=== PATIENT | female | born 1980 | race American Indian/Alaskan Native ===

== ENCOUNTER 2016-12-09 12:29 | Emergency (ER) | payer MEDICAID ==
[2016-12-09 12:50] VITALS: BP 121/67
[2016-12-09] MEDS ORDERED: Lidocaine 1% 30 ML SDV INJECT ONE (13:05)
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
== END 2016-12-09 13:47 | disposition home or self-care (01) ==
LOC: DL.ED 12:29
DX: L02.31 Cutaneous abscess of buttock (principal); G43.909 Migraine, unspecified, not intractable, without status migrainosus; F41.9 Anxiety disorder, unspecified; D64.9 Anemia, unspecified; F17.210 Nicotine dependence, cigarettes, uncomplicated; Z98.890 Other specified postprocedural states; Z88.0 Allergy status to penicillin; Z88.5 Allergy status to narcotic agent; Z88.8 Allergy status to other drugs, medicaments and biological substances
CPT/HCPCS: 10060; 87070; 99282

== ENCOUNTER 2017-01-21 20:40 | Emergency (ER) | payer MEDICAID ==
[2017-01-21 22:19] VITALS: BP 112/75
[2017-01-22] MEDS ORDERED: Lidocaine 1% 30 ML SDV INJECT ONE (01:44)
--- NOTE | 2017-01-22 02:00 | EDM.PDOC ---
ED HPI Skin/Rash - General Chief Complaint: Skin Complaint Stated Complaint: ABSESS Time Seen by Provider: 01/22/17 01:40 Source: Reports: Patient History Limitations: Reports: No limitations - History of Present Illness INITIAL COMMENTS - FREE TEXT/NARRATIVE: This 36 yo female patient reports to the ED with an abscess on her left buttocks for the past 3 days. The patient reports she called the clinic today, but was advised to got to the ED to have the abscess incised and drained. The patient has had a history of numerous abscesses, but has not followed up with dermatology yet. The patient reports she has not followed up due to difficulties with transportation. Symptom Onset Date: 01/18/17 Timing: Reports: still present, gradual onset Location, Skin: Reports: lower extremity, left Quality: Reports: Ache, Dull Severity: moderate Known Identified Source: no Place of Occurrence: home Sick Contact: no Associated Symptoms: Reports: fever/chills Similar Symptoms Previously: yes Recent Medical Care: no Treatments ROUTE RETURNER: Reports: Acetaminophen - Related Data Allergies Allergy/AdvReac Type Severity Reaction Status Date / Time amoxicillin Allergy Shortness Verified 01/21/17 22:21 of Breath codeine Allergy Hives Verified 01/21/17 22:21 latex Allergy Swelling Verified 01/21/17 22:21 tramadol Allergy Hives Verified 01/21/17 22:21 vaginal yeast creams Allergy Burning Uncoded 01/21/17 22:21 Home Meds: Ambulatory Orders Medication Instructions Recorded Confirmed Albuterol [Proventil HFA] 6.7 gm INH Q6H PRN 12/29/16 01/21/17 FLUoxetine [PROzac] 40 mg PO DAILY 12/29/16 01/21/17 Meloxicam [Mobic] 15 mg PO DAILY PRN 12/29/16 01/21/17 oxyCODONE HCl/Acetaminophen 2 each PO DAILY PRN 12/29/16 01/21/17 [Percocet 5-325 mg Tablet] Past Medical History - Past Health History Medical/Surgical History: Denies Medical/Surgical History Cardiovascular History: Reports: Blood clots/VTE/DVT Respiratory History: Reports: Asthma Gastrointestinal History: Reports: Diverticulosis Genitourinary History: Reports: Renal calculus [employer] History: Reports: Fibroids Other OB/BYN History: fibroids removed Musculoskeletal History: Reports: Fracture Neurological History: Reports: Migraines Other Neuro History: post traumatic stress Psychiatric History: Reports: Anxiety, PTSD Endocrine/Metabolic History: Reports: Other (see below) Other Endocrine/Metabolic History: hypoglycemia Hematologic History: Reports: Anemia Dermatologic History: Reports: Cellulitis, Eczema Other Dermatologic History: Abcess to upper posterior thigh, groin 12/29/16 - Infectious Disease History Infectious Disease History: Reports: MRSA - Past Surgical History Cardiovascular Surgical History: Reports: None Respiratory Surgical History: Reports: None GI Surgical History: Reports: Appendectomy Female Surgical History: Reports: section Other Oncologic Surgeries/Procedures: cervical dysplasia Social & Family History - Family History Family Medical History: Noncontributory - Tobacco Use Smoking Status *Q: Current Every Day Smoker Years of Tobacco use: 20 Packs/Tins Daily: 0.5 Second Hand Smoke Exposure: Yes - Caffeine Use Caffeine Use: Reports: Coffee, Energy drinks - Recreational Drug Use Recreational Drug Use: No ED ROS GENERAL - Review of Systems Review Of Systems: ROS reveals no pertinent complaints other than HPI. ED EXAM, SKIN/RASH Exam: See Below Exam Limited By: No limitations General Appearance: alert, WD/WN, moderate distress Eye Exam: bilateral eye: normal inspection, PERRL Ears: normal external exam Nose: normal inspection, normal mucosa, no blood Throat/Mouth: Normal inspection, Normal lips Head: atraumatic, normocephalic Neck: normal inspection, full range of motion Respiratory/Chest: no respiratory distress, lungs clear, normal breath sounds Cardiovascular: normal peripheral pulses, regular rate, rhythm (Female) Exam: Deferred Rectal (Female) Exam: Deferred Extremities: normal range of motion, no pedal edema, normal capillary refill Neurological: alert, oriented, CN II-XII intact, normal cognition, normal gait, normal reflexes, no motor/sensory deficits Psychiatric: normal affect, normal mood Skin: Increased warmth (left upper buttocks) Location, Skin: lower extremity, left Characteristics: erythematous (abscess) Associated features: warmth, tenderness, swelling, induration, inflammation Lymphatic: no adenopathy ED SKIN PROCEDURES - I&D Site: left upper buttocks Skin prep: providone-iodine (betadine), isopropyl alcohol (alcohol) Local anesthesia: Lidocaine: 1% plain Local anesthetic volume: 5cc Area incised with: other Drainage: purulent, bloody, large amount Probed to break up loculations: Yes Packed with: 1/4 in. iodoform Sterile dressing: adhesive dressing, 4x4(s) Complications: No Course - Vital Signs Last Recorded V/S: Last Vital Signs Temp 36.8 C 01/21/17 22:18 Pulse 75 01/21/17 22:18 Resp 20 01/21/17 22:18 BP 112/75 01/21/17 22:18 Pulse Ox 100 01/21/17 22:18 - Orders/Labs/Meds Orders: Active Orders 24 hr Category Date Time Status Lidocaine 1% [Xylocaine-MPF 1%] Med 01/22/17 01:44 Once 30 ml INJECT ONETIME ONE Departure - Departure Time of Disposition: 02:08 Disposition: Home, Self-Care 01 Condition: fair Clinical Impression: Abscess of left buttock Instructions: Abscess, [id number] Forms: ED Department Discharge Care Plan Goals: The patient was advised of the examination results during the visit. The patient was given an oral dose of Bactrim DS while in the ED. The patient was given a script for Bactrim DS #28 to take 1 by mouth 2 times per day for 14 days. The patient should follow-up with her primary care facility on Tuesday to have the packing replaced. If the patient has any additional symptoms or concerns, the patient should follow-up with her primary care facility or return to the emergency department. - My Orders Last 24 Hours: My Active Orders 01/22/17 01:44 Lidocaine 1% [Xylocaine-MPF 1%] 30 ml INJECT ONETIME ONE - Assessment/Plan Last 24 Hours: My Active Orders 01/22/17 01:44 Lidocaine 1% [Xylocaine-MPF 1%] 30 ml INJECT ONETIME ONE
[2017-01-22] MEDS ORDERED: Sulfamethoxazole/Trimethoprim 800-160 MG Tab PO ONE (02:06)
== END 2017-01-22 02:23 | disposition home or self-care (01) ==
LOC: DL.ED 20:40
DX: L02.31 Cutaneous abscess of buttock (principal); J45.909 Unspecified asthma, uncomplicated; Z90.49 Acquired absence of other specified parts of digestive tract; F17.210 Nicotine dependence, cigarettes, uncomplicated; Z88.1 Allergy status to other antibiotic agents; Z88.5 Allergy status to narcotic agent; Z79.899 Other long term (current) drug therapy
CPT/HCPCS: 10061; 99282; A9270

== ENCOUNTER 2018-03-15 20:14 | Emergency (ER) | payer MEDICAID ==
[2018-03-15] MEDS ORDERED: LORazepam 2 MG/ML Syringe IVPUSH ONE (20:25)
[2018-03-15] MEDS ORDERED: LORazepam 2 MG/ML Syringe ONE (20:27)
[2018-03-15] MEDS ORDERED: Ondansetron 4 MG/2 ML SDV ONE (20:27)
[2018-03-15] MEDS ORDERED: Ondansetron 4 MG/2 ML SDV IV ONE (20:29)
[2018-03-15 21:07] LABS: SODIUM,NA 142 mmol/L (135-145)
[2018-03-15 21:08] LABS: CHLORIDE,CL 113 mmol/L (101-111)
[2018-03-15] MEDS ORDERED: Morphine 2 MG/ML Syringe IVPUSH ONE (21:14)
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
== END 2018-03-15 22:15 ==
LOC: DL.ED 20:14
DX: S06.0X0A Concussion without loss of consciousness, initial encounter (principal); S60.211A Contusion of right wrist, initial encounter; M62.838 Other muscle spasm; F10.129 Alcohol abuse with intoxication, unspecified; Z88.1 Allergy status to other antibiotic agents; Z88.5 Allergy status to narcotic agent; Z91.040 Latex allergy status; Z91.048 Other nonmedicinal substance allergy status; Y90.6 Blood alcohol level of 120-199 mg/100 ml; Z79.899 Other long term (current) drug therapy; Y04.1XXA Assault by human bite, initial encounter
CPT/HCPCS: 36415; 70450; 72125; 73610; 80053; 80305; 81001; 84703; 85025; 85610; 96374; 96375; 99285; G0480; J2060; J2270; J2405

== ENCOUNTER → 2020-08-04 | Emergency (ER) | payer MEDICAID, OTHER ==
[~2020-08-04] MED LIST: Lidocaine 1% 30 ML SDV INJECT ONE
--- NOTE | 2020-08-04 17:00 | EDM.PDOC ---
ED HPI GENERAL MEDICAL PROBLEM - General Chief Complaint: Skin Complaint Stated Complaint: ABCESS CYST ON LEFT ARM, LEFT HAND SWOLLEN Time Seen by Provider: 08/04/20 16:45 Source of Information: Reports: Patient History Limitations: Reports: No Limitations - History of Present Illness INITIAL COMMENTS - FREE TEXT/NARRATIVE: This 40 yo female patient reports to the ED with an abscess in her left axilla. The patient reports she started to notice the area getting swollen and red. The patient reports a history of MRSA and ran out of Bactrim 1 week ago. The patient reports she has been attempting to get the area to drain, but has been unsuccessful. Onset: Gradual Duration: Day(s):, Constant, Getting Worse Location: Reports: Chest Quality: Reports: Ache, Stabbing Severity: Moderate Improves with: Reports: None Worsens with: Reports: None Context: Reports: Other - Related Data Allergies Allergy/AdvReac Type Severity Reaction Status Date / Time amoxicillin Allergy Shortness Verified 08/25/18 18:52 of Breath codeine Allergy Hives Verified 08/25/18 18:52 latex Allergy Swelling Verified 08/25/18 18:52 tramadol Allergy Hives Verified 08/25/18 18:52 vaginal yeast creams Allergy Burning Uncoded 08/25/18 18:52 Home Meds: Home Meds Albuterol [Proventil HFA] 6.7 gm INH Q6H PRN 12/29/16 [History] FLUoxetine [PROzac] 40 mg PO DAILY 12/29/16 [History] Meloxicam [Mobic] 15 mg PO DAILY PRN 12/29/16 [History] oxyCODONE HCl/Acetaminophen [Percocet 5-325 mg Tablet] 2 each PO DAILY PRN 12/29/16 [History] Past Medical History - Past Health History Medical/Surgical History: Denies Medical/Surgical History Cardiovascular History: Reports: Blood Clots/VTE/DVT Respiratory History: Reports: Asthma Gastrointestinal History: Reports: Diverticulosis Genitourinary History: Reports: Renal Calculus 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 Other WELL TESTING OPERATOR History: fibroids removed Musculoskeletal History: Reports: Fracture Neurological History: Reports: Migraines Other Neuro History: post traumatic stress Psychiatric History: Reports: Anxiety, PTSD Endocrine/Metabolic History: Reports: Other (See Below) Other Endocrine/Metabolic History: hypoglycemia Hematologic History: Reports: Anemia Oncologic (Cancer) History: Reports: Cervix Dermatologic History: Reports: Cellulitis, Eczema Other Dermatologic History: Abcess to upper posterior thigh, groin 12/29/16 - Infectious Disease History Infectious Disease History: Reports: MRSA - Past Surgical History Female Surgical History: Reports: Section Oncologic Surgical History: Reports: Other (See Below) Social & Family History - Family History Family Medical History: No Pertinent Family History - Caffeine Use Caffeine Use: Reports: Coffee ED ROS GENERAL - Review of Systems Review Of Systems: Comprehensive ROS is negative, except as noted in HPI. ED EXAM, SKIN/RASH Exam: See Below Exam Limited By: No Limitations General Appearance: Alert, WD/WN, Moderate Distress Eye Exam: Bilateral Eye: EOMI, Normal Inspection, PERRL Ears: Normal External Exam, Normal Canal, Hearing Grossly Normal, Normal TMs Nose: Normal Inspection, Normal Mucosa, No Blood Throat/Mouth: Normal Inspection Head: Atraumatic, Normocephalic Neck: Normal Inspection, Supple, Non-Tender, Full Range of Motion Respiratory/Chest: No Respiratory Distress, Lungs Clear, Normal Breath Sounds, No Accessory Muscle Use, Chest Non-Tender Cardiovascular: Normal Peripheral Pulses, Regular Rate, Rhythm, No Edema, No Gallop, No JVD, No Murmur, No Rub GI/Abdominal: Normal Bowel Sounds, Soft, Non-Tender, No Organomegaly, No Distention, No Abnormal Bruit, No Mass (Female) Exam: Deferred Rectal (Female) Exam: Deferred Back Exam: Normal Inspection, Full Range of Motion, NT Extremities: Arm Pain (left axilla) Neurological: Alert, Oriented, CN II-XII Intact, Normal Cognition, Normal Gait, Normal Reflexes, No Motor/Sensory Deficits Psychiatric: Normal Affect, Normal Mood Skin: Erythema, Increased Warmth, Wound/Incision Location, Skin: Chest Characteristics: Confluent, Erythematous Associated features: Warmth, Tenderness, Swelling, Induration Lymphatic: No Adenopathy ED SKIN PROCEDURES - I&D Site: left axilla Skin Prep: Providone-Iodine (Betadine) Local Anesthesia: Lidocaine: 1% Plain Local Anesthetic Volume: 3cc Area Incised With: 11 Blade Drainage: Purulent, Bloody, Moderate Amount Probed to Break Up Loculations: Yes Packed With: None Sterile Dressing: Adhesive Dressing Complications: No Course - Vital Signs Last Recorded V/S: Last Vital Signs Temp 36.7 C 08/04/20 16:34 Pulse 92 08/04/20 16:34 Resp 18 08/04/20 16:34 BP 124/60 08/04/20 16:34 Pulse Ox 99 08/04/20 16:34 - Orders/Labs/Meds Orders: Active Orders 24 hr Category Date Time Status CULTURE BLOOD [BC] Stat Lab 08/04/20 16:41 Received CULTURE WOUND [RM] Stat Lab 08/04/20 16:20 Received Labs: Laboratory Tests 08/04/20 08/04/20 08/04/20 Range/Units 16:41 16:41 16:41 WBC 11.3 H (5.0-10.0) 10^3/uL RBC 4.39 (4.2-5.4) 10^6/uL Hgb 14.1 D (12.0-16.0) g/dL Hct 40.8 (37.0-47.0) % MCV 92.9 (80-100) fL MCH 32.1 (27.0-34.0) pg MCHC 34.6 (33.0-35.0) g/dL Plt Count 301 (150-450) 10^3/uL Neut % (Auto) 65.8 (42.2-75.2) % Lymph % (Auto) 27.0 (20.5-50.1) % [place] % (Auto) 6.7 (2-8) % Eos % (Auto) 0.3 L (1.0-3.0) % Baso % (Auto) 0.2 (0.0-1.0) % Sodium 138 (136-145) mmol/L Potassium 4.3 (3.5-5.1) mmol/L Chloride 103 (98-107) mmol/L Carbon Dioxide 23 (21-32) mmol/L Anion Gap 16.3 H (7-13) mEq/L BUN 9 (7-18) mg/dL Creatinine 0.81 (0.55-1.02) mg/dL Est Cr Clr Drug Dosing 86.43 mL/min Estimated GFR (MDRD) > 60 BUN/Creatinine Ratio 11.1 (No establ ref range) Glucose 91 (74-99) mg/dL Lactic Acid 0.8 (0.4-2.0) mmol/L Calcium 9.1 (8.5-10.1) mg/dL Total Bilirubin 0.6 (0.2-1.0) mg/dL AST 22 (15-37) U/L ALT 21 (14-59) U/L Alkaline Phosphatase 68 (46-116) U/L Total Protein 7.7 (6.4-8.2) g/dL Albumin 3.7 (3.4-5.0) g/dL Globulin 4.0 Albumin/Globulin Ratio 0.9 Meds: Medications Discontinued Medications Generic Name Dose Route Start Last Admin Trade Name Freq PRN Reason Stop Dose Admin Vancomycin HCl 1,500 mg/ 500 mls @ 333.333 mls/hr 08/04/20 17:01 08/04/20 17:31 Sodium Chloride IV 08/04/20 18:30 333.333 mls/hr ONETIME ONE Administration Lidocaine HCl 30 ml 08/04/20 16:44 08/04/20 17:31 Xylocaine-Mpf 1% INJECT 08/04/20 16:45 30 ml ONETIME ONE Administration Departure - Departure Time of Disposition: 18:41 Disposition: Home, Self-Care 01 Condition: Fair Clinical Impression: Abscess of left axilla - Discharge Information *PRESCRIPTION DRUG MONITORING PROGRAM REVIEWED*: Not Applicable *COPY OF PRESCRIPTION DRUG MONITORING REPORT IN PATIENT DEVON: Not Applicable Instructions: Skin Abscess, [id number] Forms: ED Department Discharge Care Plan Goals: The patient was advised of the examination and lab results during the visit. The patient's abscess was incised and drained during the visit. The patient was given an IV dose Vancomycin while in the ED. The patient was discharged with a script for Bactrim DS to take 1 by mouth 2 times per day for 14 days. If the patient has any additional symptoms or concerns, the patient should either return to the emergency department or visit her primary care facility. Sepsis Event Note (ED) - Focused Exam Vital Signs: Vital Signs Temp Pulse Resp BP Pulse Ox 08/04/20 16:34 36.7 C 92 18 124/60 99 - My Orders Last 24 Hours: My Active Orders 08/04/20 16:20 CULTURE WOUND [RM] Stat 08/04/20 16:41 CULTURE BLOOD [BC] Stat - Assessment/Plan Last 24 Hours: My Active Orders 08/04/20 16:20 CULTURE WOUND [RM] Stat 08/04/20 16:41 CULTURE BLOOD [BC] Stat
[2020-08-04 17:03] VITALS: BP 124/60; PULSE 92
[2020-08-04 17:06] LABS: ANION GAP 16.3 mEq/L (7-13); CHLORIDE,CL 103 mmol/L (98-107); SODIUM,NA 138 mmol/L (136-145)
== END | disposition home or self-care (01) ==
LOC: DL.ED 16:12
DX: L02.412 Cutaneous abscess of left axilla (principal); J45.909 Unspecified asthma, uncomplicated; F41.9 Anxiety disorder, unspecified; Z88.1 Allergy status to other antibiotic agents; Z88.5 Allergy status to narcotic agent; Z91.040 Latex allergy status; Z88.8 Allergy status to other drugs, medicaments and biological substances; Z79.899 Other long term (current) drug therapy
CPT/HCPCS: 10060; 10061; 36415; 80053; 83605; 85025; 87040; 87070; 96365; 99283; J2001; J3370; J7040

== ENCOUNTER 2021-01-01 13:57 | Emergency (ER) | payer MEDICAID ==
[2021-01-01 14:12] VITALS: BP 132/61; PULSE 79
--- NOTE | 2021-01-01 14:34 | EDM.PDOC ---
<Marcelino Zaman Jennifer - Last Filed: 01/01/21 14:28> ED HPI GENERAL MEDICAL PROBLEM - General Stated Complaint: RIGHT SIDE ABCESS SPREADING Time Seen by Provider: 01/01/21 14:28 Source of Information: Reports: Patient History Limitations: Reports: No Limitations - History of Present Illness INITIAL COMMENTS - FREE TEXT/NARRATIVE: 40 y/o F c/o multiple skin abscesses for unknonw duration. Pt hx of acne inversa and has a hx of abscesses. In the last three days pt has noticed an abscess form just above her R buttocks, under her bra line at midline, in her left axilla and in her L groin. These areas have become tender and inflamed. Has seen dermatology before in the past but states she was treated poorly and did not return for treatment. Denies fever, cough, chills, drugs, etoh. Onset: Unknown/Unsure Duration: Day(s): Location: Reports: Generalized Generalized Pain Score (Numeric/FACES): 6 - Related Data Allergies Allergy/AdvReac Type Severity Reaction Status Date / Time amoxicillin Allergy Shortness Verified 08/25/18 18:52 of Breath codeine Allergy Hives Verified 08/25/18 18:52 latex Allergy Swelling Verified 08/25/18 18:52 tramadol Allergy Hives Verified 08/25/18 18:52 vaginal yeast creams Allergy Burning Uncoded 08/25/18 18:52 Home Meds: Home Meds Albuterol [Proventil HFA] 6.7 gm INH Q6H PRN 12/29/16 [History] FLUoxetine [PROzac] 40 mg PO DAILY 12/29/16 [History] Meloxicam [Mobic] 15 mg PO DAILY PRN 12/29/16 [History] oxyCODONE HCl/Acetaminophen [Percocet 5-325 mg Tablet] 2 each PO DAILY PRN 12/29/16 [History] Past Medical History - Past Health History Medical/Surgical History: Denies Medical/Surgical History Cardiovascular History: Reports: Blood Clots/VTE/DVT Respiratory History: Reports: Asthma Gastrointestinal History: Reports: Diverticulosis Genitourinary History: Reports: Renal Calculus 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: 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 Other INTERNATIONAL STUDENT COUNSELOR History: fibroids removed Musculoskeletal History: Reports: Fracture Neurological History: Reports: Migraines Other Neuro History: post traumatic stress Psychiatric History: Reports: Anxiety, PTSD Endocrine/Metabolic History: Reports: Other (See Below) Other Endocrine/Metabolic History: hypoglycemia Hematologic History: Reports: Anemia Oncologic (Cancer) History: Reports: Cervix Dermatologic History: Reports: Cellulitis, Eczema Other Dermatologic History: Abcess to upper posterior thigh, groin 12/29/16 - Infectious Disease History Infectious Disease History: Reports: MRSA - Past Surgical History Female Surgical History: Reports: Section Oncologic Surgical History: Reports: Other (See Below) Social & Family History - Family History Family Medical History: No Pertinent Family History - Tobacco Use Tobacco Use Status *Q: Current Every Day Tobacco User Years of Tobacco use: 28 Packs/Tins Daily: 1 Used Tobacco, but Quit: No - Caffeine Use Caffeine Use: Reports: None - Recreational Drug Use Recreational Drug Use: No ED ROS GENERAL - Review of Systems Review Of Systems: Comprehensive ROS is negative, except as noted in HPI. ED EXAM, GENERAL - Physical Exam Exam: See Below Exam Limited By: No Limitations General Appearance: Alert, WD/WN, No Apparent Distress Nose: Normal Inspection, Normal Mucosa, No Blood Throat/Mouth: Normal Inspection, Normal Lips, Normal Teeth, Normal Gums, Normal Oropharynx, Normal Voice, No Airway Compromise Head: Atraumatic, Normocephalic Neck: Normal Inspection, Supple, Non-Tender, Full Range of Motion Respiratory/Chest: No Respiratory Distress, Lungs Clear, Normal Breath Sounds, No Accessory Muscle Use, Chest Non-Tender Cardiovascular: Normal Peripheral Pulses, Regular Rate, Rhythm, No Edema, No G allop, No JVD, No Murmur, No Rub GI/Abdominal: Soft, Non-Tender (Female) Exam: Deferred Rectal (Female) Exam: Deferred Back Exam: Full Range of Motion Extremities: Normal Inspection, Normal Range of Motion, Non-Tender, Normal Capillary Refill, No Pedal Edema Neurological: Alert, Oriented, CN II-XII Intact, Normal Cognition, Normal Gait, Normal Reflexes, No Motor/Sensory Deficits Psychiatric: Normal Affect, Normal Mood Skin Exam: Other (3.5 cm abscess at waist line just above right buttocks. 2cm abcess R axilla, 1.5 cm abscess in L groin. Multiple lesions with comedomes to chest, back , waistline and axilla.) Departure - Departure Disposition: Home, Self-Care 01 Clinical Impression: Abscess - Discharge Information Instructions: Skin Abscess, [id number] Referrals: PCP,None [Primary Care Provider] - Forms: ED Department Discharge Additional Instructions: RX: Bactrim Follow up with your primary care facility Return to ER with any worsening of problems May use Tylenol and/or Ibuprofen as directed for pain/fever Sepsis Event Note (ED) - Evaluation Sepsis Screening Result: No Definite Risk <Judith Wood - Last Filed: 01/01/21 16:15> ED GENERAL MEDICAL PROCEDURES - Additional/Other Procedure(s) Other (Free Text) Procedure(s): I&D x3 Right flank area (3cm x 2cm), 4cc Lido with Epi injected. 15 g. scalpel used to incise the abscess. Large amount of green/bloody/purulent drainage from the area. Area probed for pockets, flushed with normal saline. No complications. Dressed with bacitracin, non-adherent dressing, covered with ABD for protection/comfort. Second area Left axillary (2cm x 2cm). Injected with 3cc Lido with epi. Large amount of purulent drainage from the area after 15 g. scalpel introduced. Third area left groin (1cm x 1cm). Injected 2cc Lido with epi. 15g scalpel introduced, small amount of purulent drainage from the area. These areas were covered with bacitracin and non-adherent dressing as well. No complications. Wound culture taken from the right flank area. Started on Bactrim. Course - Vital Signs Last Recorded V/S: Last Vital Signs Temp 97.8 F 01/01/21 14:08 Pulse 79 01/01/21 14:08 Resp 20 01/01/21 14:08 BP 132/61 01/01/21 14:08 Pulse Ox 99 01/01/21 14:08 - Orders/Labs/Meds Orders: Active Orders 24 hr Category Date Time Status CULTURE WOUND [RM] Urgent Lab 01/01/21 15:52 Ordered Meds: Medications Discontinued Medications Generic Name Dose Route Start Last Admin Trade Name Freq PRN Reason Stop Dose Admin Bacitracin 5 dose 01/01/21 14:58 01/01/21 15:02 Bacitracin Oint 1 Gm U/D Packet TOP 01/01/21 14:59 5 dose ONETIME ONE Administration Lidocaine/Epinephrine 20 ml 01/01/21 14:38 01/01/21 14:44 Lidocaine 2% With Epinephrine 1:200,000 20 Ml Sdv INJECT 01/01/21 14:39 20 ml ONETIME ONE Administration - Re-Assessments/Exams Free Text/Narrative Re-Assessment/Exam: 01/01/21 15:00 I personally performed or re-performed the physical examination and medical decision making. I have verified all student documentation or findings, including history, physical exam and/or medical decision making. Departure - Departure Time of Disposition: 15:25 Condition: Fair - Discharge Information *PRESCRIPTION DRUG MONITORING PROGRAM REVIEWED*: No *COPY OF PRESCRIPTION DRUG MONITORING REPORT IN PATIENT DEVON: No Sepsis Event Note (ED) - Focused Exam Vital Signs: Vital Signs Temp Pulse Resp BP Pulse Ox 01/01/21 14:08 97.8 F 79 20 132/61 99 - My Orders Last 24 Hours: My Active Orders 01/01/21 15:52 CULTURE WOUND [RM] Urgent - Assessment/Plan Last 24 Hours: My Active Orders 01/01/21 15:52 CULTURE WOUND [RM] Urgent
[2021-01-01] MEDS ORDERED: Lidocaine 2% with EPINEPHrine 1:200,000 20 ML SDV INJECT ONE (14:38)
[2021-01-01] MEDS ORDERED: Bacitracin Oint 1 GM U/D Packet TOP ONE (14:58)
== END 2021-01-01 15:33 | disposition home or self-care (01) ==
LOC: DL.ED 13:57
DX: L02.412 Cutaneous abscess of left axilla (principal); L02.214 Cutaneous abscess of groin; L02.211 Cutaneous abscess of abdominal wall; J45.909 Unspecified asthma, uncomplicated; Z88.0 Allergy status to penicillin; Z88.5 Allergy status to narcotic agent; Z91.040 Latex allergy status; Z79.899 Other long term (current) drug therapy; Z72.0 Tobacco use
CPT/HCPCS: 10061; 87070; 87077; 87186; 99283-25

== ENCOUNTER 2021-07-26 22:59 | Emergency (ER) | payer MEDICAID ==
[2021-07-26 23:20] VITALS: BP 122/81; PULSE 65
[2021-07-26] MEDS ORDERED: Sulfamethoxazole/Trimethoprim 800-160 MG Tab PO ONE (23:23)
--- NOTE | 2021-07-26 23:29 | EDM.PDOC ---
ED HPI GENERAL MEDICAL PROBLEM - General Chief Complaint: Skin Complaint Stated Complaint: INFECTION ON RIGHT SHOULDER BLADE, VOMITING Time Seen by Provider: 07/26/21 23:15 Source of Information: Reports: Patient, RN History Limitations: Reports: No Limitations - Related Data Allergies Allergy/AdvReac Type Severity Reaction Status Date / Time amoxicillin Allergy Shortness Verified 07/26/21 23:13 of Breath codeine Allergy Hives Verified 07/26/21 23:13 latex Allergy Swelling Verified 07/26/21 23:13 tramadol Allergy Hives Verified 07/26/21 23:13 vaginal yeast creams Allergy Burning Uncoded 07/26/21 23:13 Home Meds: Home Meds Albuterol [Proventil HFA] 6.7 gm INH Q6H PRN 12/29/16 [History] FLUoxetine [PROzac] 40 mg PO DAILY 12/29/16 [History] Meloxicam [Mobic] 15 mg PO DAILY PRN 12/29/16 [History] oxyCODONE HCl/Acetaminophen [Percocet 5-325 mg Tablet] 2 each PO DAILY PRN 12/29/16 [History] Past Medical History - Past Health History Medical/Surgical History: Denies Medical/Surgical History Cardiovascular History: Reports: Blood Clots/VTE/DVT Respiratory History: Reports: Asthma Gastrointestinal History: Reports: Diverticulosis Genitourinary History: Reports: Renal Calculus 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 chronic boils - Infectious Disease History Infectious Disease History: Reports: Chicken Pox, MRSA - Past Surgical History Cardiovascular Surgical History: Reports: None Respiratory Surgical History: Reports: None GI Surgical History: Reports: Appendectomy Female Surgical History: Reports: Section Oncologic Surgical History: Reports: Other (See Below) Other Oncologic Surgeries/Procedures: cervical dysplasia Social & Family History - Family History Family Medical History: No Pertinent Family History - Tobacco Use Tobacco Use Status *Q: Current Every Day Tobacco User Years of Tobacco use: 20 Packs/Tins Daily: 0.5 - Caffeine Use Caffeine Use: Reports: None - Recreational Drug Use Recreational Drug Use: No ED ROS GENERAL - Review of Systems Review Of Systems: See Below ED EXAM, SKIN/RASH Exam: See Below Exam Limited By: No Limitations General Appearance: Alert, Mild Distress Eye Exam: Bilateral Eye: EOMI, PERRL Ears: Normal External Exam Nose: Normal Inspection Throat/Mouth: Normal Inspection Head: Atraumatic, Normocephalic Neck: Normal Inspection, Full Range of Motion Respiratory/Chest: No Respiratory Distress, Lungs Clear, Normal Breath Sounds Cardiovascular: Regular Rate, Rhythm Extremities: Normal Inspection Neurological: Alert, Oriented Skin: Warm, Dry, Wound/Incision (multiple skin abscesses, varying size and age, larger, draining scant yellow fluid under right bra line, small plum size firm right axilll, errythemaous area right scapula irregular margins approxmately 3x3cm ) Course - Vital Signs Last Recorded V/S: Last Vital Signs Temp 98.3 F 07/26/21 23:13 Pulse 65 07/26/21 23:13 Resp 18 07/26/21 23:13 BP 122/81 07/26/21 23:13 Pulse Ox 98 07/26/21 23:13 - Orders/Labs/Meds Meds: Medications Discontinued Medications Generic Name Dose Route Start Last Admin Trade Name Tran PRN Reason Stop Dose Admin Trimethoprim/Sulfamethoxazole 1 tab 07/26/21 23:23 07/26/21 23:27 Sulfamethoxazole/Trimethoprim 800-160 Mg Tab PO 07/26/21 23:24 1 tab ONETIME ONE Administration Departure - Departure Time of Disposition: 23:34 Disposition: Home, Self-Care 01 Condition: Good Clinical Impression: Abscess - Discharge Information *PRESCRIPTION DRUG MONITORING PROGRAM REVIEWED*: No *COPY OF PRESCRIPTION DRUG MONITORING REPORT IN PATIENT DEVON: No Instructions: Skin Abscess Forms: ED Department Discharge Additional Instructions: Bactrim DS one twice daily follow up clinic for derm referral warm pack areas 3 times daily cover if draining follow up if worsening symptoms with fever and increased redness tylenol 500mg every 4 hours as needed for discomfort Sepsis Event Note (ED) - Evaluation Sepsis Screening Result: No Definite Risk - Focused Exam Vital Signs: Vital Signs Temp Pulse Resp BP Pulse Ox 07/26/21 23:13 98.3 F 65 18 122/81 98
== END 2021-07-26 23:30 | disposition home or self-care (01) ==
LOC: DL.ED 22:59
DX: L02.413 Cutaneous abscess of right upper limb (principal); Z88.0 Allergy status to penicillin; Z88.5 Allergy status to narcotic agent; Z91.040 Latex allergy status; Z88.8 Allergy status to other drugs, medicaments and biological substances; Z72.0 Tobacco use
CPT/HCPCS: 99282; A9270

== ENCOUNTER 2022-02-28 13:25 | Emergency (ER) | payer MEDICAID ==
[2022-02-28] MEDS ORDERED: Doxycycline Monohydrate 100 MG Cap PO ONE (13:26)
[2022-02-28 14:06] VITALS: BP 122/94; PULSE 98
[2022-02-28] MEDS ORDERED: Doxycycline Monohydrate 100 MG Cap ONE (15:23)
== END 2022-02-28 15:29 | disposition home or self-care (01) ==
LOC: DL.ED 13:25
DX: L02.31 Cutaneous abscess of buttock (principal); J45.909 Unspecified asthma, uncomplicated; F17.210 Nicotine dependence, cigarettes, uncomplicated; Z90.49 Acquired absence of other specified parts of digestive tract; Z79.899 Other long term (current) drug therapy; Z88.0 Allergy status to penicillin; Z88.5 Allergy status to narcotic agent; Z91.040 Latex allergy status; Z88.8 Allergy status to other drugs, medicaments and biological substances
CPT/HCPCS: 99282; 99283; A9270

== ENCOUNTER 2023-09-17 13:20 | Emergency (ER) | payer MEDICAID ==
[2023-09-17] MEDS ORDERED: Dexamethasone 2 MG Tab PO ONE (13:21)
[2023-09-17 13:38] VITALS: BP 139/93; PULSE 106
[2023-09-17] MEDS ORDERED: Ketorolac 30 MG/ML SDV IM ONE (13:52)
[2023-09-17] MEDS ORDERED: Dexamethasone 4 MG/ML SDV IM ONE (13:52)
[2023-09-17] MEDS ORDERED: Take Home: Benzonatate 100 MG, 6 Cap Pack PO ONE ×2 (13:53)
[2023-09-17] MEDS ORDERED: Dexamethasone 2 MG Tab ONE (13:59)
== END 2023-09-17 14:11 | disposition home or self-care (01) ==
LOC: DL.ED 13:20
DX: J06.9 Acute upper respiratory infection, unspecified (principal); F17.210 Nicotine dependence, cigarettes, uncomplicated; J45.909 Unspecified asthma, uncomplicated; Z90.49 Acquired absence of other specified parts of digestive tract; Z79.899 Other long term (current) drug therapy; Z88.0 Allergy status to penicillin; Z88.5 Allergy status to narcotic agent; Z91.040 Latex allergy status; Z88.1 Allergy status to other antibiotic agents; Z88.6 Allergy status to analgesic agent
CPT/HCPCS: 96372; 99283; A9270; J1100; J1885; 99284

== ENCOUNTER 2024-03-04 14:58 | Emergency (ER) | payer MEDICAID ==
[2024-03-04 15:23] VITALS: BP 126/77; PULSE 100
== END 2024-03-04 16:39 | disposition left against medical advice (07) ==
LOC: DL.ED 14:58
DX: Z53.21 Procedure and treatment not carried out due to patient leaving prior to being seen by health care provider (principal)

== ENCOUNTER 2024-04-28 10:36 | Emergency (ER) | payer MEDICAID, OTHER ==
[2024-04-28 12:21] VITALS: BP 118/70; PULSE 70
== END 2024-04-28 12:21 | disposition home or self-care (01) ==
LOC: DL.ED 10:36
DX: L02.212 Cutaneous abscess of back [any part, except buttock and flank] (principal); Z90.49 Acquired absence of other specified parts of digestive tract; Z86.16 Personal history of COVID-19; Z79.899 Other long term (current) drug therapy; Z88.0 Allergy status to penicillin; Z91.040 Latex allergy status; Z88.5 Allergy status to narcotic agent; Z88.8 Allergy status to other drugs, medicaments and biological substances
CPT/HCPCS: 99283

== ENCOUNTER 2024-05-08 22:21 | Emergency (ER) | payer MEDICAID ==
[2024-05-08 22:49] VITALS: BP 124/74; PULSE 94
[2024-05-08] MEDS: Lidocaine 1% 5 ML VIAL INJECT ONE (23:14)
[2024-05-08] MEDS: Lidocaine 1% 30 ML SDV ONE (23:17)
[2024-05-08] MEDS: Acetaminophen/HYDROcodone 325-5 MG Tab PO ONE (23:46)
[2024-05-08] MEDS: Ketorolac 30 MG/ML SDV IM ONE (23:50)
== END 2024-05-08 23:55 | disposition home or self-care (01) ==
LOC: DL.ED 22:21
DX: L02.212 Cutaneous abscess of back [any part, except buttock and flank] (principal); A49.02 Methicillin resistant Staphylococcus aureus infection, unspecified site; L73.2 Hidradenitis suppurativa; F17.210 Nicotine dependence, cigarettes, uncomplicated; Z90.49 Acquired absence of other specified parts of digestive tract; Z79.899 Other long term (current) drug therapy; Z88.0 Allergy status to penicillin; Z88.5 Allergy status to narcotic agent; Z91.040 Latex allergy status; Z88.8 Allergy status to other drugs, medicaments and biological substances
CPT/HCPCS: 10060; 82947; 87070; 99283; A9270; 87075; J3490

== ENCOUNTER 2024-07-30 12:58 | Emergency (ER) | payer MEDICAID ==
[2024-07-30 13:10] VITALS: BP 131/84; PULSE 96
[2024-07-30] MEDS ORDERED: Sodium Chloride 0.9% 10 ML Syringe FLUSH PRN (13:33)
[2024-07-30 13:52] LABS: BASOPHILS PERCENT AUTO 0.3 % (0.0-1.0); EOSINOPHILS PERCENT AUTO 0.9 % (1.0-3.0); HEMATOCRIT 40.3 % (37.0-47.0); HEMOGLOBIN 13.2 g/dL (12.0-16.0); LYMPHOCYTES PERCENT AUTO 34.6 % (20.5-50.1); MEAN CORPUSCULAR HEMOGLOBIN 30.6 pg (27.0-34.0); MEAN CORPUSCULAR HGB CONC 32.8 g/dL (33.0-35.0); MEAN CORPUSCULAR VOLUME 93.3 fL (80-100); MONOCYTES PERCENT AUTO 7.4 % (2-8); NEUTROPHILS PERCENT AUTO 56.8 % (42.2-75.2); PLATELET COUNT,PLT 333 10^3/uL (150-450); RED BLOOD CELL COUNT 4.32 10^6/uL (4.2-5.4); WHITE BLOOD CELL COUNT,WBC 7.4 10^3/uL (5.0-10.0)
[2024-07-30 14:03] LABS: APPEARANCE,URINE SLIGHTLY CLOUDY (CLEAR); BILIRUBIN,URINE NEGATIVE (NEGATIVE); COLOR,URINE YELLOW (YELLOW); GLUCOSE,URINE NEGATIVE (NEGATIVE); KETONES,URINE NEGATIVE (NEGATIVE); LEUKOCYTE ESTERASE,URINE SMALL (NEGATIVE); NITRITE,URINE POSITIVE (NEGATIVE); OCCULT BLOOD,URINE NEGATIVE (NEGATIVE); PROTEIN,URINE NEGATIVE (NEGATIVE); UROBILINOGEN,URINE 0.2 mg/dL (0.2-1.0)
[2024-07-30 14:06] LABS: AMPHETAMINES,URINE NEGATIVE (NEGATIVE); BARBITURATES,URINE NEGATIVE (NEGATIVE); BENZODIAZEPINE,URINE NEGATIVE (NEGATIVE); MDMA (ECSTASY), URINE NEGATIVE (NEGATIVE); METHADONE,URINE NEGATIVE (NEGATIVE); METHAMPHETAMINES,URINE NEGATIVE (NEGATIVE); OPIATES,URINE NEGATIVE (NEGATIVE); OXYCODONE,URINE NEGATIVE (NEGATIVE); PHENCYCLIDINE,URINE NEGATIVE (NEGATIVE); TCA,URINE NEGATIVE (NEGATIVE)
[2024-07-30 14:10] LABS: PROTHROMBIN TIME 10.7 SEC (9.0-12.0); PTT,PARTIAL THROMBOPLSTIN TIME 26.1 SEC (22.0-34.0)
[2024-07-30 14:13] LABS: WBC,URINE 30-40 /HPF (0-5/HPF)
[2024-07-30 14:14] LABS: BACTERIA,URINE MANY /HPF (0-FEW/HPF); EPITHELIAL CELLS,URINE MODERATE /HPF (NOT SEEN); MUCUS,URINE FEW /LPF (NOT SEEN); RBC,URINE 0-5 /HPF (0-5)
[2024-07-30 14:15] LABS: YEAST,URINE FEW /HPF (NOT SEEN)
[2024-07-30 14:18] LABS: LACTIC ACID 0.7 mmol/L (0.4-2.0)
[2024-07-30 14:29] LABS: A/G RATIO 1.1; ALANINE AMINOTRANSFERASE,ALT 23 U/L (14-59); ALBUMIN 3.8 g/dL (3.4-5.0); ALKALINE PHOSPHATASE 80 U/L (46-116); ANION GAP 13.8 mEq/L (7-13); ASPARTATE AMNIOTRANSFERASE,AST 10 U/L (15-37); BILIRUBIN TOTAL 0.3 mg/dL (0.2-1.0); BLOOD UREA NITROGEN,BUN 11 mg/dL (7-18); BUN/CREATININE RATIO 11.7 (No establ ref range); C-REACTIVE PROTEIN < 0.50 ng/dL (<=0.50); CALCIUM 9.4 mg/dL (8.5-10.1); CARBON DIOXIDE,CO2 23 mmol/L (21-32); CHLORIDE,CL 107 mmol/L (98-107); CREATININE 0.94 mg/dL (0.55-1.02); EST CRCL DRUG DOSING (CG) 74.27 mL/min; ESTIMATED GFR 77 mL/min (>=60); ETHANOL BLOOD MEDICAL < 3 mg/dL (0); GLUCOSE RANDOM 97 mg/dL (70-99); MAGNESIUM 1.7 mg/dL (1.8-2.4); POTASSIUM,K 3.8 mmol/L (3.5-5.1); PROTEIN TOTAL,TP 7.3 g/dL (6.4-8.2); SODIUM,NA 140 mmol/L (136-145); TSH ULTRASENSITIVE 4.48 uIU/mL (0.36-3.74)
[2024-07-30] MEDS: Sodium Chloride 0.9% 1,000 ML IV ONE (14:38)
[2024-07-30] MEDS: Metoclopramide 10 MG/2 ML SDV IVPUSH ONE (14:39)
[2024-07-30] MEDS: diphenhydrAMINE 50 MG/ML SDV IVPUSH ONE (14:39)
[2024-07-30] MEDS: Ketorolac 30 MG/ML SDV IVPUSH ONE (15:31)
[2024-07-30] MEDS: Nitrofurantoin Monohydrate/Macrocrystalline 100 MG Cap PO ONE (15:31)
== END 2024-07-30 16:29 | disposition home or self-care (01) ==
LOC: DL.ED 12:58
DX: R51.9 Headache, unspecified (principal); N30.00 Acute cystitis without hematuria; Z86.16 Personal history of COVID-19; Z90.49 Acquired absence of other specified parts of digestive tract; Z88.0 Allergy status to penicillin; Z88.5 Allergy status to narcotic agent; Z88.8 Allergy status to other drugs, medicaments and biological substances; Z91.040 Latex allergy status; Z79.51 Long term (current) use of inhaled steroids; Z79.899 Other long term (current) drug therapy
CPT/HCPCS: 36415; 70450; 80053; 80305; 80307; 81001; 81025; 82140; 83605; 83735; 84443; 85025; 85610; 85730; 86140; 87086; 96374; 96375; 99284; A9270; J1200; J1885; J2765; J7030; 87088; 87186

== ENCOUNTER 2024-08-29 13:22 | Emergency (ER) | payer MEDICAID ==
[2024-08-29 14:18] VITALS: BP 117/72; PULSE 88
== END 2024-08-29 14:17 | disposition home or self-care (01) ==
LOC: DL.ED 13:22
DX: L03.116 Cellulitis of left lower limb (principal); F17.210 Nicotine dependence, cigarettes, uncomplicated; Z86.16 Personal history of COVID-19; Z90.49 Acquired absence of other specified parts of digestive tract; Z88.0 Allergy status to penicillin; Z88.5 Allergy status to narcotic agent; Z88.8 Allergy status to other drugs, medicaments and biological substances; Z91.040 Latex allergy status; Z79.51 Long term (current) use of inhaled steroids; Z79.899 Other long term (current) drug therapy
CPT/HCPCS: 99282

== ENCOUNTER 2024-09-02 02:02 | Emergency (ER) | payer MEDICAID ==
[2024-09-02] MEDS: Take Home: Clindamycin HCl 150 MG, 12 Cap Pack PO ONE (03:30)
== END 2024-09-02 03:30 | disposition home or self-care (01) ==
LOC: DL.ED 02:02
DX: L02.31 Cutaneous abscess of buttock (principal); Z90.49 Acquired absence of other specified parts of digestive tract; Z86.16 Personal history of COVID-19; Z88.0 Allergy status to penicillin; Z88.5 Allergy status to narcotic agent; Z88.8 Allergy status to other drugs, medicaments and biological substances; Z91.040 Latex allergy status; Z79.51 Long term (current) use of inhaled steroids; Z79.899 Other long term (current) drug therapy
CPT/HCPCS: 10060; 87070; 99283; A9270

== ENCOUNTER 2024-12-13 21:29 | Emergency (ER) | payer MEDICAID | END 2024-12-13 21:51 | disposition left against medical advice (07) | LOC: DL.ED 21:29 | DX: Z53.21 Procedure and treatment not carried out due to patient leaving prior to being seen by health care provider (principal) ==

== ENCOUNTER 2024-12-15 16:06 | Emergency (ER) | payer MEDICAID ==
[2024-12-15 16:40] VITALS: BP 137/73; PULSE 92
[2024-12-15] MEDS ORDERED: Sodium Chloride 0.9% 10 ML Syringe FLUSH PRN (16:52)
[2024-12-15 17:06] LABS: BASOPHILS PERCENT AUTO 0.2 % (0.0-1.0); EOSINOPHILS PERCENT AUTO 0.4 % (1.0-3.0); HEMATOCRIT 44.6 % (37.0-47.0); HEMOGLOBIN 14.6 g/dL (12.0-16.0); LYMPHOCYTES PERCENT AUTO 27.3 % (20.5-50.1); MEAN CORPUSCULAR HEMOGLOBIN 30.4 pg (27.0-34.0); MEAN CORPUSCULAR HGB CONC 32.7 g/dL (33.0-35.0); MEAN CORPUSCULAR VOLUME 92.9 fL (80-100); MONOCYTES PERCENT AUTO 9.7 % (2-8); NEUTROPHILS PERCENT AUTO 62.4 % (42.2-75.2); PLATELET COUNT,PLT 255 10^3/uL (150-450); WHITE BLOOD CELL COUNT,WBC 10.1 10^3/uL (5.0-10.0)
[2024-12-15 17:19] LABS: BILIRUBIN,URINE NEGATIVE (NEGATIVE); GLUCOSE,URINE NEGATIVE (NEGATIVE); KETONES,URINE TRACE (NEGATIVE); LEUKOCYTE ESTERASE,URINE TRACE (NEGATIVE); NITRITE,URINE POSITIVE (NEGATIVE); OCCULT BLOOD,URINE MODERATE (NEGATIVE); PROTEIN,URINE NEGATIVE (NEGATIVE); UROBILINOGEN,URINE 0.2 mg/dL (0.2-1.0)
[2024-12-15 17:22] LABS: APPEARANCE,URINE SLIGHTLY CLOUDY (CLEAR); COLOR,URINE LIGHT YELLOW (YELLOW)
[2024-12-15] MEDS: Lidocaine/Prilocaine 2.5-2.5% Crm 5 GM Tube TOP ONE (17:23)
[2024-12-15 17:26] LABS: PROTHROMBIN TIME 10.2 SEC (9.0-12.0); PTT,PARTIAL THROMBOPLSTIN TIME 26.4 SEC (22.0-34.0)
[2024-12-15 17:28] LABS: A/G RATIO 0.9; ALBUMIN 3.9 g/dL (3.4-5.0); BILIRUBIN TOTAL 0.3 mg/dL (0.2-1.0); BUN/CREATININE RATIO 17.3 (No establ ref range); C-REACTIVE PROTEIN 1.98 ng/dL (<=0.50); CALCIUM 9.1 mg/dL (8.5-10.1); CREATININE 0.81 mg/dL (0.55-1.02); EST CRCL DRUG DOSING (CG) 86.19 mL/min; PROTEIN TOTAL,TP 8.1 g/dL (6.4-8.2)
[2024-12-15 17:32] LABS: LACTIC ACID 0.8 mmol/L (0.4-2.0)
[2024-12-15 17:32] LABS: BACTERIA,URINE MANY /HPF (0-FEW/HPF); EPITHELIAL CELLS,URINE FEW /HPF (NOT SEEN)
[2024-12-15] MEDS: Ondansetron 4 MG/2 ML SDV ONE (18:51)
[2024-12-15] MEDS: HYDROmorphone 1 MG/ML Syringe ONE (18:51)
[2024-12-15] MEDS: Levofloxacin 500 MG Tab PO ONE (18:57)
[2024-12-15] MEDS: Take Home: Levofloxacin 500 MG Tab, 3 Tab Pack PO ONE (19:03)
[2024-12-15] MEDS: Take Home: Ondansetron 4 MG Tab.DIS, 5 Tab Pack PO ONE (19:03)
[2024-12-15] MEDS: Take Home: Acetaminophen/HYDROcodone 325-5 MG, 5 Tab Pack PO ONE (19:03)
[2024-12-15] MEDS: HYDROmorphone 1 MG/ML Syringe IVPUSH ONE (19:11)
[2024-12-15] MEDS: Ondansetron 4 MG/2 ML SDV IVPUSH ONE (19:12)
== END 2024-12-15 19:00 | disposition home or self-care (01) ==
LOC: DL.ED 16:06
DX: L02.212 Cutaneous abscess of back [any part, except buttock and flank] (principal); L73.2 Hidradenitis suppurativa; N30.00 Acute cystitis without hematuria; F17.210 Nicotine dependence, cigarettes, uncomplicated; Z88.0 Allergy status to penicillin; Z88.5 Allergy status to narcotic agent; Z91.040 Latex allergy status; Z91.048 Other nonmedicinal substance allergy status; Z79.51 Long term (current) use of inhaled steroids; Z79.899 Other long term (current) drug therapy
CPT/HCPCS: 10060; 36415; 80053; 81001; 81025; 83605; 85025; 85610; 85730; 86140; 87040; 87070; 87086; 87088; 87186; 99283-25; 99284; A9270-GY; J1171; J2405; Q0162

== ENCOUNTER 2025-04-18 16:48 | Emergency (ER) | payer MEDICAID ==
[2025-04-18 17:44] VITALS: BP 112/67; PULSE 80
== END 2025-04-18 18:47 | disposition left against medical advice (07) ==
LOC: DL.ED 16:48
DX: Z53.21 Procedure and treatment not carried out due to patient leaving prior to being seen by health care provider (principal)

== ENCOUNTER 2025-04-18 20:35 | Emergency (ER) | payer MEDICAID ==
[2025-04-18] MEDS: Take Home: Clindamycin HCl 150 MG, 12 Cap Pack PO ONE (23:07)
[2025-04-18 23:12] VITALS: BP 114/67; PULSE 53
== END 2025-04-18 23:15 | disposition home or self-care (01) ==
LOC: DL.ED 20:35
DX: L02.212 Cutaneous abscess of back [any part, except buttock and flank] (principal); Z88.0 Allergy status to penicillin; Z91.030 Bee allergy status; Z88.5 Allergy status to narcotic agent; Z91.040 Latex allergy status; Z79.51 Long term (current) use of inhaled steroids; Z79.899 Other long term (current) drug therapy
CPT/HCPCS: 10060; 87070; 87205; 99283; A9270